=== PATIENT | male | born 1935 ===

== ENCOUNTER 2021-04-03 11:04 | Inpatient (IN) ==
[~2021-04-03 11:04] MED LIST: Buffered Lidocaine 1% SYRIN 1 ml INTRADERM ONE; Famotidine IV 10 MG/ML 2 ml VIAL (20 mg) IV ONE; Lactated Ringers 1000 ml BAG 1,000 ML IV SCH
[2021-04-03] MEDS ORDERED: Famotidine IV 10 MG/ML 2 ml VIAL (20 mg) ONE (11:31)
[2021-04-03] MEDS ORDERED: ceFAZolin 2 GM PREMIX 2 GM/50 ML BAG ONE (11:31)
[2021-04-03 11:43] LABS: Rapid COVID-19 Molecular Undetected (Undetected)
[2021-04-03] MEDS ORDERED: Propofol 10 MG/ML 20 ML BTL ONE (12:37)
[2021-04-03] MEDS ORDERED: Midazolam 2 mg/2 ml VIAL 1 mg/ml 2 ml VIAL (2 mg) ONE (13:30)
[2021-04-03] MEDS ORDERED: fentaNYL 100 mcg/2 ml 50 MCG/ML VIAL IV PRN (13:47)
[2021-04-03] MEDS ORDERED: Naloxone 0.4 mg VIAL 0.4 mg/ml 1 ml VIAL IV PRN (13:47)
[2021-04-03] MEDS ORDERED: HYDROmorphone 1 MG/1 ML SYRINGE IV PRN (13:47)
[2021-04-03] MEDS ORDERED: Ondansetron 4 mg VIAL 2 MG/ML 2 ml VIAL IV PRN ×2 (13:47→14:54)
[2021-04-03] MEDS ORDERED: Phenylephrine 40 mcg/mL 10mL (400mcg) SYRINGE ONE (14:06)
[2021-04-03] MEDS ORDERED: EPHEDrine (Pressors) 50 MG/ML VIAL ONE (14:06)
[2021-04-03] MEDS ORDERED: Lactulose 30 ml UDC PO PRN (14:54)
[2021-04-03] MEDS ORDERED: diPHENhydraMINE IV 50 MG/ML 1 ml VIAL (BENADRYL) IV PRN (14:54)
[2021-04-03] MEDS ORDERED: Ondansetron ODT 4 mg TAB 4 MG TAB PO PRN (14:54)
[2021-04-03] MEDS ORDERED: Magnesium Hydroxide LIQ 30 ML UDC PO PRN (14:54)
[2021-04-03] MEDS ORDERED: diPHENhydraMINE 25 mg TAB PO PRN (14:54)
[2021-04-03] MEDS ORDERED: Morphine 2 MG/ML SYRINGE IV PRN (14:54)
[2021-04-03] MEDS ORDERED: ceFAZolin 1 GM ADVAN 1 GM in NS 0.9% 50 ML 50 ML IVPB SCH (15:00)
[2021-04-03] MEDS ORDERED: Ropivacaine 5 MG/ML 20 ML VIAL 0.5% (100 MG) ONE (15:46)
[2021-04-03] MEDS: Lactated Ringers 1000 ml BAG 1,000 ML IV SCH (17:40)
[2021-04-03] MEDS: Magnesium Hydroxide LIQ 30 ML UDC PO SCH (22:41)
[2021-04-03] MEDS: ceFAZolin 1 GM ADVAN 1 GM in NS 0.9% 50 ML 50 ML IVPB SCH (22:43)
[2021-04-04] MEDS: Lactated Ringers 1000 ml BAG 1,000 ML IV SCH (05:35)
[2021-04-04] MEDS: ceFAZolin 1 GM ADVAN 1 GM in NS 0.9% 50 ML 50 ML IVPB SCH ×2 (05:51→13:45)
[2021-04-04 06:16] LABS: Hematocrit 39 % (42-52); Hemoglobin 13.4 g/dL (14.0-18.0); Platelet Count 206 10^3/uL (150-450)
[2021-04-04 06:35] LABS: Calcium 8.6 mg/dL (8.6-10.3); Potassium 4.4 mmol/L (3.5-5.0); eGFR CKD-EPI 69.6 (>60)
[2021-04-04] MEDS: Magnesium Hydroxide LIQ 30 ML UDC PO SCH (08:33)
[2021-04-04] MEDS ORDERED: Vitamin THERAPEUTIC TAB PO SCH (09:00)
[2021-04-04 11:18] VITALS: BP 101/55
== END 2021-04-04 15:00 | disposition home or self-care (01) | DRG 470 ==
LOC: AA 11:04 → SSU 17:27
PROVIDERS: ADMIT Orthopaedic Surgery Adult Reconstructive Orthopaedic Surgery; ATTEND Orthopaedic Surgery Adult Reconstructive Orthopaedic Surgery